=== PATIENT | female | born 1980 | race Caucasian/White ===

== ENCOUNTER 2017-08-29 07:49 | Emergency (ER) | payer BC ==
[~2017-08-29] VITALS: Ht 165.1 cm; Wt 63.5 kg
[2017-08-29 08:13] VITALS: BP_SYST 109
--- NOTE | 2017-08-29 08:25 | NUR ---
PT PRESENTS 13 WEEKS , EDC 03/09. STARTED HAVING DARK RED VAGINAL BLEEDING LAST NIGHT WITHOUT CRAMPING AFTER SHE WENT TO THE BATHROOM TO URINATE. SHE SAW BLOOD CLOTS IN THE TOILET. HAD LOWER ABD PAIN YESTERDAY BUT NOT RIGHT NOW. PT IS WITH 2 MISCARRIAGES THAT WERE EARLIER IN THE . WITH PT.
--- NOTE | 2017-08-29 08:30 | NUR ---
ER MD AT BEDSIDE FOR EVAL. ABD EXAM DONE WITH US AND HEARTBEAT OBSERVED.
--- NOTE | 2017-08-29 08:50 | NUR ---
URINE SENT TO LAB. URINE POSITIVE.
[2017-08-29 09:05] LABS: BASOPHILS # (AUTO) 0.1 K/uL (0.0-0.2); BASOPHILS % (AUTO) 1.8 % (0.0-2.0); EOSINOPHILS # (AUTO) 0.1 K/uL (0.0-0.4); EOSINOPHILS % (AUTO) 0.7 % (0.0-4.0); HEMATOCRIT 39.8 % (36-48); LYMPHOCYTES # (AUTO) 1.5 K/uL (1.0-5.5); LYMPHOCYTES % (AUTO) 18.9 % (20.5-51.5); MEAN CORPUSCULAR HEMOGLOBIN 28 pg (27-31); MEAN CORPUSCULAR HGB CONC 33 % (32-36); MEAN CORPUSCULAR VOLUME 86 fL (79.0-98.0); MONOCYTES # (AUTO) 0.5 K/uL (0.0-1.0); MONOCYTES % (AUTO) 6.5 % (1.7-9.3); NEUTROPHILS # (AUTO) 5.7 K/uL (1.8-7.7); NEUTROPHILS % (AUTO) 72.1 % (40.0-70.0); PLATELET COUNT (AUTO) 265 K/uL (130-430); RED BLOOD CELL COUNT(AUTO) 4.64 MIL/uL (4.2-6.2); RED CELL DISTRIBUTION WIDTH 12.4 % (9.0-15.0); WHITE BLOOD COUNT (AUTO) 7.9 K/uL (4.8-10.8)
[2017-08-29 09:25] LABS: PROTHROMBIN TIME 10.2 SECS (9.5-12.5)
[2017-08-29 09:31] LABS: BILIRUBIN,URINE NEGATIVE (NEGATIVE); BLOOD, URINE 1+ (NEGATIVE); CLARITY/URINE CLEAR (CLEAR); COLOR,URINE YELLOW (YELLOW); GLUCOSE,URINE NEGATIVE (NEGATIVE); KETONES,URINE NEGATIVE (NEGATIVE); LEUKOCYTE ESTERASE ,URINE TRACE (NEGATIVE); NITRITE, URINE NEGATIVE (NEGATIVE); PROTEIN URINE NEGATIVE (NEGATIVE); UROBILINOGEN,URINE 0.2 (0.2-1.0)
--- NOTE | 2017-08-29 09:41 | NUR ---
PT AMBULATED TO US FOR EXAM.
[2017-08-29 09:48] LABS: BACTERIA,URINE FEW /HPF (None Seen); MUCUS,URINE None Seen /LPF (None Seen); RBC,URINE 0-3 /HPF (0-3); WBC,URINE 0-3 /HPF (0-3)
--- NOTE | 2017-08-29 10:00 | NUR ---
ER MD BACK IN TO ROOM TO DISCUSS TEST RESULTS. QUESTIONS ANSWERED.
--- NOTE | 2017-08-29 10:20 | NUR ---
Patient given written and verbal discharge instructions and verbalizes understanding. ER MD discussed with patient the results and treatment provided. Patient in stable condition. ID arm band removed. NO RX given. Patient educated on pain management and to follow up with PMD. Pain Scale . Opportunity for questions provided and answered. PT DISCHARGED TO PRIVATE AUTO BY AMBULATING WITH .
[2017-08-29 10:34] VITALS: BP_SYST 125
== END 2017-08-29 10:31 | disposition home or self-care (01) ==
LOC: SED 07:49
DX: O20.0 Threatened abortion (principal); Z3A.14 14 weeks gestation of pregnancy; O09.522 Supervision of elderly multigravida, second trimester
CPT/HCPCS: 36415; 76802; 81000-TC; 81025; 84702-TC; 85025; 85610-TC; 85730-TC; 86900; 86901; 99285

== ENCOUNTER 2018-02-13 19:30 | Inpatient (IN) | payer BC ==
[~2018-02-13] VITALS: Ht 165.1 cm; Wt 78.0 kg
[2018-02-13] MEDS ORDERED: OXYTOCIN/NORMAL SALINE 1,000 ML IV SCH (19:49)
[2018-02-13] MEDS ORDERED: LR 500 ML IV ONE (19:49)
[2018-02-13] MEDS ORDERED: LR 1,000 ML IV ONE (19:49)
[2018-02-13] MEDS ORDERED: NALBUPHINE HCL 10 MG/ML AMP IVP PRN (20:00)
[2018-02-13] MEDS ORDERED: TERBUTALINE SULFATE 1 MG/ML VIAL SUBCUT ONE (20:00)
[2018-02-13] MEDS: LR 1,000 ML IV SCH (20:15)
[2018-02-13 20:35] LABS: BASOPHILS # (AUTO) 0.1 K/uL (0.0-0.2); EOSINOPHILS # (AUTO) 0.1 K/uL (0.0-0.4); HEMATOCRIT 34.6 % (36-48); HEMOGLOBIN 11.1 g/dL (12.0-16.0); LYMPHOCYTES # (AUTO) 1.6 K/uL (1.0-5.5); LYMPHOCYTES % (AUTO) 19.7 % (20.5-51.5); MEAN CORPUSCULAR HEMOGLOBIN 26 pg (27-31); MEAN CORPUSCULAR HGB CONC 32 % (32-36); MEAN CORPUSCULAR VOLUME 82 fL (79.0-98.0); MONOCYTES # (AUTO) 0.7 K/uL (0.0-1.0); MONOCYTES % (AUTO) 8.1 % (1.7-9.3); NEUTROPHILS # (AUTO) 5.7 K/uL (1.8-7.7); NEUTROPHILS % (AUTO) 70.2 % (40.0-70.0); PLATELET COUNT (AUTO) 227 K/uL (130-430); RED BLOOD CELL COUNT(AUTO) 4.24 MIL/uL (4.2-6.2); RED CELL DISTRIBUTION WIDTH 13.1 % (9.0-15.0); WHITE BLOOD COUNT (AUTO) 8.2 K/uL (4.8-10.8)
[2018-02-13 22:18] VITALS: BP_SYST 121
[2018-02-14] MEDS ORDERED: AMPICILLIN SODIUM 2 GM in NS 100 ML IV ONE (12:00)
[2018-02-14] MEDS: LR 1,000 ML IV SCH (12:15)
[2018-02-14] MEDS ORDERED: AMPICILLIN SODIUM 2 GM VIAL ONE (12:29)
[2018-02-14] MEDS ORDERED: fentaNYL CITRATE/PF 100 MCG/2 ML AMP ONE (13:32)
[2018-02-14] MEDS ORDERED: ROPIVACAINE 0.2% 100 ML ONE (13:33)
[2018-02-14] MEDS ORDERED: OXYTOCIN/NORMAL SALINE 1,000 ML IV ONE (15:37)
[2018-02-14] MEDS ORDERED: OXYCODONE/ACETAMINOPHEN 5-325 TABLET PO PRN ×2 (15:45)
[2018-02-14] MEDS ORDERED: DERMOPLAST SPRAY TP PRN (15:45)
[2018-02-14] MEDS ORDERED: HYDROCORTISONE 0.5%, 28.35 GM TOPICAL CREAM TP PRN (15:45)
[2018-02-14] MEDS ORDERED: RHO(D) IMMUNE GLOBULIN/MALTOSE 1500 UNITS/1.3 ML (WINHRO) IM PRN (15:45)
[2018-02-14] MEDS ORDERED: HYDROcodone/ACETAMIN 5-325 MG TAB (NORCO/ VICODIN) PO PRN (15:45)
[2018-02-14] MEDS ORDERED: DIPH-TET-PERTUS Vaccine 0.5 ML VIAL (ADACEL) I.M. PRN (15:45)
[2018-02-14] MEDS ORDERED: MEASLES,MUMPS&RUBELLA VACC/PF 12500 UNIT/0.5 ML VIAL SUBQ PRN (15:45)
[2018-02-14] MEDS ORDERED: LANOLIN 7 GM OINT. TP PRN (15:45)
[2018-02-14] MEDS ORDERED: SENNOSIDES/DOCUSATE SODIUM 1 TAB TABLET(SENOKOT-S) PO PRN (15:45)
[2018-02-14] MEDS ORDERED: AMPICILLIN SODIUM 1 GM in NS 50 ML IV SCH (16:30)
[2018-02-14] MEDS: IBUPROFEN 600 MG TABLET PO SCH (18:12)
[2018-02-14] MEDS ORDERED: LIDOCAINE PF 1% 30ML(POUR BTL) INJ ONE (18:36)
[2018-02-14] MEDS ORDERED: TEMAZEPAM 15 MG CAPSULE PO PRN (21:00)
[2018-02-15] MEDS: IBUPROFEN 600 MG TABLET PO SCH ×5 (03:00→21:34)
[2018-02-15 06:49] LABS: BASOPHILS % (AUTO) 0.3 % (0.0-2.0); EOSINOPHILS % (AUTO) 0.4 % (0.0-4.0); HEMATOCRIT 35.7 % (36-48); HEMOGLOBIN 11.4 g/dL (12.0-16.0); LYMPHOCYTES # (AUTO) 1.4 K/uL (1.0-5.5); MEAN CORPUSCULAR HEMOGLOBIN 27 pg (27-31); MEAN CORPUSCULAR HGB CONC 32 % (32-36); MEAN CORPUSCULAR VOLUME 84 fL (79.0-98.0); MONOCYTES # (AUTO) 0.8 K/uL (0.0-1.0); MONOCYTES % (AUTO) 6.7 % (1.7-9.3); NEUTROPHILS # (AUTO) 9.3 K/uL (1.8-7.7); NEUTROPHILS % (AUTO) 80.6 % (40.0-70.0); PLATELET COUNT (AUTO) 213 K/uL (130-430); RED BLOOD CELL COUNT(AUTO) 4.27 MIL/uL (4.2-6.2); RED CELL DISTRIBUTION WIDTH 13.7 % (9.0-15.0); WHITE BLOOD COUNT (AUTO) 11.5 K/uL (4.8-10.8)
[2018-02-16] MEDS: IBUPROFEN 600 MG TABLET PO SCH ×2 (03:14→12:14)
== END 2018-02-16 13:10 | disposition home or self-care (01) | DRG 775 ==
LOC: SPU 19:30 → OBSVTOIN 19:43 → SPU 02-15 21:09
PROVIDERS: ADMIT Specialist; ATTEND Specialist
PROC: 0HQ9XZZ Repair Perineum Skin, External Approach (ICD-10-PCS; principal; 2018-02-13)
PROC: 10E0XZZ Delivery of Products of Conception, External Approach (ICD-10-PCS; 2018-02-13)
DX: O70.9 Perineal laceration during delivery, unspecified (principal); Z37.0 Single live birth; Z3A.39 39 weeks gestation of pregnancy
CPT/HCPCS: 36415; 81002-TC; 85025; 86592; 86886; 86900; 86901; G0378; J0290; J2001; J2300; J2590; J2795; J3010; J7120